=== PATIENT | male | born 1990 | race Caucasian/White ===

== ENCOUNTER 2016-11-27 12:33 | Emergency (ER) | payer BC ==
[2016-11-27 12:38] VITALS: BP 139/89; PULSE 60; TEMP 98; BMI 28.7
[2016-11-27] MEDS ORDERED: CEPHALEXIN MONOHYDRATE 500 MG CAPSULE (UD) PO ONE (13:59)
[2016-11-27] MEDS ORDERED: DIPHTH,PERTUSS(ACELL),TET 0.5 ML DISP.SYRIN IM ONE (14:00)
[2016-11-27] MEDS ORDERED: CEPHALEXIN MONOHYDRATE 500 MG CAPSULE (UD) ONE (14:10)
--- NOTE | 2016-11-27 14:33 | PDOC ---
History of Present Illness - General Chief Complaint: Injury Stated Complaint: LT HAND INJURY Time Seen by Provider: 11/27/16 13:25 History Source: Patient Exam Limitations: No Limitations - History of Present Illness Initial Comments: 11/27/16 14:28 CUT FINGER WITH DRILL TODAY WHILEWORKING WITH WOOD Occurred: reports: just prior to arrival Severity: reports: mild Pain Location: reports: upper extremity Method of Injury: Yes: direct blow Past History - Past Medical History Allergies/Adverse Reactions: Allergies Allergy/AdvReac Type Severity Reaction Status Date / Time No Known Allergies Allergy Verified 11/27/16 12:34 Home Medications: Ambulatory Orders No Home Medications 1 tab PO ASDIR 05/27/12 Other medical history: denies - Immunization History Td Vaccination: (WITHIN 5 YRS) Immunization Up to Date: Yes - Psycho/Social/Smoking Cessation Hx Anxiety: No Suicidal Ideation: No Smoking Status: No Smoking History: Never smoked Have you smoked in the past 12 months: No Number of Cigarettes Smoked Daily: 0 Information on smoking cessation initiated: No Hx Alcohol Use: No Drug/Substance Use Hx: No Review of Systems - Review of Systems Constitutional: Yes: Malaise. No: Chills, Fever Respiratory: No: Symptoms reported, Cough Cardiac (ROS): No: Symptoms Reported Integumentary: Yes: Other (SMALL ABRASION TO FINGER) Neurological: Yes: Other. No: Symptoms reported, Numbness, Paresthesia *Physical Exam - Vital Signs Last Vital Signs Temp Pulse Resp BP Pulse Ox 98 F 60 20 139/89 99 11/27/16 12:34 11/27/16 12:34 11/27/16 12:34 11/27/16 12:34 11/27/16 12:34 - Physical Exam General Appearance: Yes: Appropriately Dressed, Apparent Distress HEENT: positive: TMs Normal, Pharynx Normal Respiratory/Chest: negative: Lungs Clear Extremity: positive: Other (MENDES PUNCTURE WOUND < .5CM TO VOLAR SURFACE LEFT INDEX JUST PROX TO PIP; PIP NOT INVOLVED) ED Treatment Course - RADIOLOGY Radiology Studies Ordered: Category Date Time Status FINGER(S) LEFT [RAD] Stat Radiology 11/27/16 14:00 Completed - Medications Given in the ED: ED Medications Discontinued Medications Generic Name Dose Route Start Last Admin Trade Name Freq PRN Reason Stop Dose Admin Cephalexin HCl 500 mg 11/27/16 13:59 11/27/16 14:13 Keflex - PO 11/27/16 14:00 500 mg ONCE ONE Administration Diphtheria/Tetanus/Acell Pertussis 0.5 ml 11/27/16 14:00 11/27/16 14:13 Boostrix - IM 11/27/16 14:01 0.5 ml .ONCE ONE Administration Medical Decision Making - Medical Decision Making 11/27/16 14:31 XRAY= NEGATIVE; TD AND KEFLE PROPHAXALIS *DC/Admit/Observation/Transfer Diagnosis at time of Disposition: Puncture wound of finger of left hand Qualifiers: Encounter type: initial encounter Qualified Code(s): S61.239A - Puncture wound without foreign body of unspecified finger without damage to nail, initial encounter - Discharge Dispostion Disposition: HOME Condition at time of disposition: Stable Admit: No - Patient Instructions Additional Instructions: TETANUS GOOD X 10 YEARS; CLEAN DAILY; WOUND CHECK IN ED IN 2 DAYS - Post Discharge Activity Work/School Note: Back to Work
== END 2016-11-27 14:46 | disposition home or self-care (01) ==
LOC: JERFT 12:33
PROC: 3E0234Z Introduction of Serum, Toxoid and Vaccine into Muscle, Percutaneous Approach (ICD-10-PCS; principal; 2016-11-27)
DX: S61.231A Puncture wound without foreign body of left index finger without damage to nail, initial encounter (principal); W29.8XXA Contact with other powered hand tools and household machinery, initial encounter; Y93.89 Activity, other specified; Y92.89 Other specified places as the place of occurrence of the external cause; Y99.0 Civilian activity done for income or pay
CPT/HCPCS: 73140-TC-LT; 90715; 99281-25

== ENCOUNTER 2017-10-02 20:05 | Emergency (ER) | payer BC ==
[2017-10-02] MEDS ORDERED: NAPROXEN 500 MG TABLET (FP) PO ONE (20:22)
[2017-10-02 20:24] VITALS: BP 155/85; PULSE 82; TEMP 99; BMI 29.4
[2017-10-02] MEDS ORDERED: KETOROLAC TROMETHAMINE 15 MG/ML VIAL IM ONE (20:25)
[2017-10-02] MEDS ORDERED: KETOROLAC TROMETHAMINE 15 MG/ML VIAL ONE (20:27)
--- NOTE | 2017-10-02 20:59 | PDOC ---
History of Present Illness - General Chief Complaint: Injury Stated Complaint: TWISTED RIGHT ANKLE TODAY Time Seen by Provider: 10/02/17 20:11 - History of Present Illness Initial Comments: 10/02/17 20:47 "The patient is a 27 year old male who presents to the emergency department with R ankle pain. He reports that he twisted his ankle inwards while stacking logs. He believes he inverted it. Pt felt a pop afterwards and fell to the ground. However, he notes that he was able to put weight on the ankle immediately afterwards and was able to ambulate but reports that it has gotten harder to do so. He denies any other kind of injuries. Denies headstrike/LOC. Allergies: None Past surgical history: None reported Social history: No alcohol, tobacco or drug use reported " Past History - Past Medical History Allergies/Adverse Reactions: Allergies Allergy/AdvReac Type Severity Reaction Status Date / Time No Known Allergies Allergy Verified 10/02/17 20:15 Home Medications: Ambulatory Orders NK [No Known Home Medication] 10/02/17 COPD: No Other medical history: DENIES - Immunization History Td Vaccination: (WITHIN 5 YRS) Immunization Up to Date: Yes - Suicide/Smoking/Psychosocial Hx Smoking Status: No Smoking History: Never smoked Have you smoked in the past 12 months: No Number of Cigarettes Smoked Daily: 0 Information on smoking cessation initiated: No Hx Alcohol Use: Yes (SOCIAL) Drug/Substance Use Hx: No Substance Use Type: Alcohol Review of Systems - Review of Systems Comments:: 10/02/17 21:00 "GENERAL/CONSTITUTIONAL: No fever or chills. No weakness. HEAD, EYES, EARS, NOSE AND THROAT: No change in vision. No ear pain or discharge. No sore throat. CARDIOVASCULAR: No chest pain or shortness of breath. RESPIRATORY: No cough, wheezing, or hemoptysis. GASTROINTESTINAL: No nausea, vomiting, diarrhea or constipation. GENITOURINARY: No dysuria, frequency, or change in urination. MUSCULOSKELETAL: No joint or muscle swelling or pain. No neck or back pain. EXTREMITIES: (+) Right ankle injury. SKIN: No rash NEUROLOGIC: No headache, vertigo, loss of consciousness, or change in strength/ sensation. ENDOCRINE: No increased thirst. No abnormal weight change. HEMATOLOGIC/LYMPHATIC: No anemia, easy bleeding, or history of blood clots. ALLERGIC/IMMUNOLOGIC: No hives or skin allergy. " *Physical Exam - Vital Signs Last Vital Signs Temp Pulse Resp BP Pulse Ox 99 F 82 16 155/85 99 10/02/17 20:09 10/02/17 20:09 10/02/17 20:09 10/02/17 20:09 10/02/17 20:09 - Physical Exam Comments: 10/02/17 21:00 "GENERAL: Awake, alert, and fully oriented, in no acute distress HEAD: No signs of trauma EYES: PERRLA, EOMI, sclera anicteric, conjunctiva clear ENT: Auricles normal inspection, hearing grossly normal, nares patent, oropharynx clear without exudates. Moist mucosa NECK: Nontender, no stepoffs, Normal ROM, supple, no lymphadenopathy, JVD, or masses LUNGS: Breath sounds equal, clear to auscultation bilaterally. No wheezes, and no crackles HEART: Regular rate and rhythm, normal S1 and S2, no murmurs, rubs or gallops ABDOMEN: Soft, nontender, normoactive bowel sounds. No guarding, no rebound. No masses EXTREMITIES: R ankle with tenderness over lateral malleolus, + joint effusion, no obvious deformity, pt able to bear weight with some discomfort NEUROLOGICAL: Cranial nerves II through XII intact. 5/5 strength and sensation in all extremities, Normal speech, normal gait SKIN: Warm, Dry, normal turgor, no rashes or lesions noted. " ED Treatment Course - RADIOLOGY Radiology Studies Ordered: Category Date Time Status ANKLE-RIGHT [RAD] Stat Radiology 10/02/17 20:22 Ordered - Medications Given in the ED: ED Medications Discontinued Medications Generic Name Dose Route Start Last Admin Trade Name Kvng PRN Reason Stop Dose Admin Ketorolac Tromethamine 15 mg 10/02/17 20:25 10/02/17 20:31 Toradol Injection - IM 10/02/17 20:26 15 mg ONCE ONE Administration Medical Decision Making - Medical Decision Making 10/02/17 21:00 27 M with R ankle pain and swelling after twisting it today. - XR R ankle - Pain control 10/02/17 21:12 XR with no acute fx on my read. Pt reassessed s/p toradol. Now ambulatory with normal gait. No ankle instability on exam. Pt placed in BRADLEY wrap. Crutches offered but pt declined. Pt has his own orthopedic surgeon with whom he will follow up. I discussed the physical exam findings, ancillary test results and final diagnoses with the patient. I answered all of the patient's questions. The patient was satisfied with the care received and felt comfortable with the discharge plan and treatment plan. The patient agrees to follow up with the primary care physician within 24-72 hours. *DC/Admit/Observation/Transfer Diagnosis at time of Disposition: Ankle sprain - Discharge Dispostion Disposition: HOME Condition at time of disposition: Stable - Referrals Referrals: Artis Jimenez MD [Staff Physician] - - Patient Instructions Printed Discharge Instructions: DI for Ankle Sprain Additional Instructions: Rest your ankle as much as possible. Apply ice and keep it elevated to reduce swelling. Take ibuprofen or aleve as needed for pain. If you experience worsening pain, swelling, or any other concerning symptoms, return to the ER immediately. Otherwise, follow up with your orthopedist within 1 week for a re-evaluation. If you do not have one, call the number provided to make an appointment. - Post Discharge Activity - Attestations Physician Attestion: 10/02/17 21:14 I, Dr. Artis Frederick MD, attest that this document has been prepared under my direction and personally reviewed by me in its entirety. I further attest, that it accurately reflects all work, treatment, procedures and medical decision -making performed by me.
== END 2017-10-02 21:17 | disposition home or self-care (01) ==
LOC: FER 20:05
PROC: 3E0233Z Introduction of Anti-inflammatory into Muscle, Percutaneous Approach (ICD-10-PCS; principal; 2017-10-02)
DX: S93.401A Sprain of unspecified ligament of right ankle, initial encounter (principal); X58.XXXA Exposure to other specified factors, initial encounter; Y93.89 Activity, other specified; Y92.9 Unspecified place or not applicable
CPT/HCPCS: 73610-TC-RT; 99281-25

== ENCOUNTER 2018-11-05 12:05 | Emergency (ER) | payer OTHER, BC ==
[2018-11-05 12:09] VITALS: BP 149/85; PULSE 70; TEMP 97.3; BMI 28.7
--- NOTE | 2018-11-05 13:00 | PDOC ---
History of Present Illness - General Chief Complaint: Injury Stated Complaint: INJURY Time Seen by Provider: 11/05/18 12:35 History Source: Patient Exam Limitations: Clinical Condition - History of Present Illness Initial Comments: 11/05/18 12:55 Patient with no significant past medical history present with complaint of right ankle pain status post twisting on curbside over an hour ago. Patient denies fall. Timing/Duration: 1-3 hours Past History - Past Medical History Allergies/Adverse Reactions: Allergies Allergy/AdvReac Type Severity Reaction Status Date / Time No Known Allergies Allergy Verified 11/05/18 12:06 Home Medications: Ambulatory Orders Naproxen 500 mg PO BID PRN #20 tablet 11/05/18 COPD: No - Immunization History Td Vaccination: (WITHIN 5 YRS) Immunization Up to Date: Yes - Suicide/Smoking/Psychosocial Hx Smoking Status: No Smoking History: Never smoked Have you smoked in the past 12 months: No Number of Cigarettes Smoked Daily: 0 Information on smoking cessation initiated: No Hx Alcohol Use: No Drug/Substance Use Hx: No Substance Use Type: Alcohol Review of Systems - Review of Systems Able to Perform ROS?: Yes Is the patient limited Albanian proficient: No Constitutional: No: Weakness HEENTM: No: Symptoms Reported Respiratory: No: Symptoms reported Cardiac (ROS): No: Symptoms Reported ABD/GI: No: Symptoms Reported Musculoskeletal: Yes: Joint Pain (right ankle pain), Muscle Pain (right ankle lateral side pain). No: Muscle Weakness All Other Systems: Reviewed and Negative *Physical Exam - Vital Signs Last Vital Signs Temp Pulse Resp BP Pulse Ox 97.3 F L 70 16 149/85 100 11/05/18 12:06 11/05/18 12:06 11/05/18 12:06 11/05/18 12:06 11/05/18 12:06 - Physical Exam Comments: 11/05/18 12:56 GENERAL: Well developed, well nourished. Awake and alert. mild acute distress. CARDIOVASCULAR: Regular rate and rhythm. No murmurs, rubs, or gallops. PULMONARY: No evidence of respiratory distress. Lungs clear to auscultation bilaterally. No wheezing, rales or rhonchi. ABDOMINAL: Soft. Non-tender. Non-distended. No rebound or guarding. No organomegaly. Normoactive bowel sounds MUSCULOSKELETAL : mild tenderness over lateral malleolus and dorsum of right ankle. No swelling to her ankle. No ecchymosis or bruising to ankle. No bony deformities SKIN: Warm and dry. Normal capillary refill. NEUROLOGICAL: Alert, awake, appropriate. No motor deficits in the lower extremities. PSYCHIATRIC: Cooperative. Good eye contact. Appropriate mood and affect. General Appearance: Yes: Nourished, Appropriately Dressed, Mild Distress Moderate Sedation - Procedure Monitoring Vital Signs: Procedure Monitoring Vital Signs Temperature 97.3 F L 11/05/18 12:06 Pulse Rate 70 11/05/18 12:06 Respiratory Rate 16 11/05/18 12:06 Blood Pressure 149/85 11/05/18 12:06 O2 Sat by Pulse Oximetry (%) 100 11/05/18 12:06 ED Treatment Course - RADIOLOGY Radiology Studies Ordered: Category Date Time Status ANKLE & FOOT-RIGHT* [RAD] Stat Radiology 11/05/18 12:50 Ordered Medical Decision Making - Medical Decision Making 11/05/18 12:58 Patient with no significant past medication present with complaint of right ankle pain status post twisting right ankle on curbside over an hour ago. Exam significant for mild tenderness to dorsal and lateral malleolus of right ankle. X-ray of right ankle and foot ordered 11/05/18 13:24 X-ray of right ankle and foot shows no acute pathology. Patient is stable for discharge with ankle support brace. Patient declined crutches. Naproxen 500 mg ordered as needed for pain. Orthopedist follow-up given. *DC/Admit/Observation/Transfer Diagnosis at time of Disposition: Ankle sprain Qualifiers: Encounter type: initial encounter Involved ligament of ankle: unspecified ligament Laterality: right Qualified Code(s): S93.401A - Sprain of unspecified ligament of right ankle, initial encounter - Discharge Dispostion Disposition: HOME Condition at time of disposition: Stable Decision to Admit order: No - Prescriptions Prescriptions: Naproxen 500 mg PO BID PRN #20 tablet PRN Reason: ankle pain - Referrals Referrals: Didier Read MD [Staff Physician] - - Patient Instructions Printed Discharge Instructions: DI for Ankle Sprain Additional Instructions: Take medication as prescribed. Keep weight off right ankle for next 3 days after which you can ambulate as tolerated. Elevate right ankle for the next 3 days and apply warm compresses to ankle 2-3 times a day for 5-10 minutes. Follow -up referred orthopedics if symptoms persist for more than 4 days. - Post Discharge Activity Forms/Work/School Notes: Back to Work
== END 2018-11-05 13:33 | disposition home or self-care (01) ==
LOC: JERFT 12:05
PROC: 2W3QX3Z Immobilization of Right Lower Leg using Brace (ICD-10-PCS; principal; 2018-11-05)
DX: S93.401A Sprain of unspecified ligament of right ankle, initial encounter (principal); X50.1XXA Overexertion from prolonged static or awkward postures, initial encounter; Y93.89 Activity, other specified; Y92.480 Sidewalk as the place of occurrence of the external cause; Y99.0 Civilian activity done for income or pay
CPT/HCPCS: 73610-TC-RT-FY; 73630-TC-RT-FY; 99281-25

== ENCOUNTER 2021-01-09 09:17 | Emergency (ER) | payer OTHER, BC ==
[2021-01-09 09:25] VITALS: BP 124/89; PULSE 73; TEMP 98.2; BMI 28.7
[2021-01-09] MEDS ORDERED: DIPHTH,PERTUSS(ACELL),TET 0.5 ML DISP.SYRIN IM ONE ×2 (09:55→10:05)
== END 2021-01-09 10:29 | disposition home or self-care (01) ==
LOC: JERFT 09:17
PROC: 0HQKXZZ Repair Right Lower Leg Skin, External Approach (ICD-10-PCS; principal; 2021-01-09)
PROC: 3E0234Z Introduction of Serum, Toxoid and Vaccine into Muscle, Percutaneous Approach (ICD-10-PCS; 2021-01-09)
DX: S81.011A Laceration without foreign body, right knee, initial encounter (principal)
CPT/HCPCS: 73560-TC-RT-FY; 90715; 99284-25

== ENCOUNTER 2023-05-15 11:35 | Emergency (ER) | payer BC ==
[2023-05-15 11:49] VITALS: BP 143/87; PULSE 76; RESP 16; TEMP 97.9; BMI 29.4
[2023-05-15] MEDS ORDERED: LIDOCAINE HCL 1%, 10 MG/ML (50 mL VIAL) SQ ONE (12:57)
[2023-05-15] MEDS ORDERED: LIDOCAINE HCL 1%, 10 MG/ML (10ML VIAL) MDV ONE (13:04)
== END 2023-05-15 14:17 | disposition home or self-care (01) ==
LOC: JERFT 11:35
PROC: 0HP Skin and Breast, Removal (ICD-10-PCS; principal; 2023-05-15)
DX: S61.112A Laceration without foreign body of left thumb with damage to nail, initial encounter (principal); W31.2XXA Contact with powered woodworking and forming machines, initial encounter
CPT/HCPCS: 73140-TC-LT-FY; 99283-25